=== PATIENT | male | born 1960 | race Caucasian/White ===

== ENCOUNTER 2022-11-21 06:44 | Observation (INO) | payer BC ==
[2022-11-19 13:52] LABS: BASOPHILS # (AUTO) 0.1 (0.0-0.1); BASOPHILS % 0.6 % (0.0-1.0); EOSINOPHILS # (AUTO) 0.1 (0.0-0.4); EOSINOPHILS % 0.9 % (0.0-6.0); HEMATOCRIT 46.2 % (38.2-49.6); HEMOGLOBIN 15.7 g/dL (14.0-18.0); LYMPHOCYTES # (AUTO) 0.6 (1.0-3.2); LYMPHOCYTES % 6.2 % (18.0-39.1); MEAN CORPUSCULAR HEMOGLOBIN 29.6 pg (28-32); MONOCYTES # (AUTO) 0.8 (0.2-0.8); MONOCYTES % 8.5 % (4.4-11.3); NEUTROPHILS # (AUTO) 7.8 (2.1-6.9); NEUTROPHILS % 82.7 % (38.7-80.0); PLATELET COUNT 273 x10e3/uL (140-360); RED BLOOD COUNT 5.31 x10e6/uL (4.3-5.7); RED CELL DISTRIBUTION WIDTH 13.6 % (11.7-14.4)
[2022-11-19 14:01] LABS: INR 0.95; PROTHROMBIN TIME 12.9 seconds (11.9-14.5)
[2022-11-19 14:02] LABS: PARTIAL THROMBOPLASTIN TIME 26.5 seconds (23.8-35.5)
[2022-11-19 14:09] LABS: ANION GAP 12.9 mmol/L (8-16); CREATININE, SERUM 0.89 mg/dL (0.72-1.25); POTASSIUM 3.9 mmol/L (3.5-5.1)
[~2022-11-21] VITALS: Ht 185.4 cm; Wt 86.2 kg
[~2022-11-21 06:44] MED LIST: ATORVASTATIN CA40 MG PO; LEXAPRO20 MG PO; LORATADINE10 MG PO; OMEPRAZOLE40 MG PO; TRELEGY ELLIPT1 EAC1 PO
[2022-11-21] MEDS ORDERED: CEFAZOLIN SODIUM 2 GM ONE (08:33)
[2022-11-21] MEDS ORDERED: SUGAMMADEX SODIUM 200 MG/2 ML VIAL IV ONE (09:44)
[2022-11-21] MEDS ORDERED: ACETAMINOPHEN 1000 MG/100 ML 100 ML IV ONE (09:45)
[2022-11-21] MEDS ORDERED: ZOLPIDEM TARTRATE 5 MG TAB PO PRN (10:45)
[2022-11-21] MEDS ORDERED: ACETAMINOPHEN 325 MG TAB PO PRN (10:45)
[2022-11-21] MEDS ORDERED: PROMETHAZINE HCL (IM) 25 MG/ML VIAL IM PRN (10:45)
[2022-11-21] MEDS ORDERED: MAGNESIUM/ALUMINUM/SIMETHICONE 30 ML UDC PO PRN (10:45)
[2022-11-21] MEDS ORDERED: MORPHINE SULFATE 5 MG/ML VIAL IM PRN (10:45)
[2022-11-21] MEDS ORDERED: HYDROCODON-ACE1 EA12 PO (10:46)
[2022-11-21] MEDS ORDERED: FENTANYL CITRATE/PF 100MCG/2 ML INJ ONE ×2 (11:13→12:33)
[2022-11-21] MEDS ORDERED: ONDANSETRON HCL INJ 2MG/ML 2ML 2 MG/ML VIAL ONE (12:10)
[2022-11-21] MEDS ORDERED: ROCURONIUM BROMIDE 10 MG/ML 5ML VIAL IV ONE (12:10)
[2022-11-21] MEDS ORDERED: POVIDONE IODINE 0.05% 0.05 % ML PO ONE (12:10)
[2022-11-21] MEDS ORDERED: DEXAMETHASONE SOD PHOS INJ 4 MG/ML SDV ONE (12:10)
[2022-11-21] MEDS ORDERED: ALBUTEROL SULFATE HFA 8GM INHALATION AEROSOL INH ONE (12:10)
[2022-11-21] MEDS ORDERED: KETOROLAC TROMETHAMINE 30 MG/ML VIAL ONE (12:10)
[2022-11-21] MEDS ORDERED: SEVOFLURANE INHAL SOLN 250 ML PEN BTL ONE (12:10)
[2022-11-21] MEDS ORDERED: PROPOFOL IV EMULSION 10 MG/ML 20 ML VIAL ONE (12:10)
[2022-11-21] MEDS ORDERED: LIDOCAINE HCL 2% LOCAL INJ 5 ML SDV VIAL INJ ONE (12:10)
[2022-11-21 12:21] VITALS: BP 124/77
[2022-11-21 12:25] VITALS: BP 124/77
[2022-11-21] MEDS: LACTATED RINGER'S 1,000 ML IV SCH ×2 (13:13→18:41)
[2022-11-21] MEDS: OXYCODONE/ACETAMINOPHEN 5-325 1 EACH TABLET PO PRN (14:57)
[2022-11-21] MEDS: CARISOPRODOL 350 MG TAB PO PRN (14:58)
[2022-11-21 16:43] VITALS: BP 154/88
[2022-11-21 20:00] VITALS: BP 150/91
[2022-11-21] MEDS: ONDANSETRON HCL INJ 2MG/ML 2ML 2 MG/ML VIAL IV PRN (20:00)
[2022-11-21] MEDS: HYDROMORPHONE 2MG/ML 2 MG/ML ML IV PRN (20:00)
[2022-11-21] MEDS ORDERED: ATORVASTATIN 40 MG TAB PO SCH (21:00)
[2022-11-21] MEDS ORDERED: NON-FORMULARY MEDICATION (Atorvastatin Calcium 40 MG) PO SCH (21:00)
[2022-11-22] MEDS: ONDANSETRON HCL INJ 2MG/ML 2ML 2 MG/ML VIAL IV PRN (01:26)
[2022-11-22] MEDS: HYDROMORPHONE 2MG/ML 2 MG/ML ML IV PRN (01:26)
[2022-11-22] MEDS: LACTATED RINGER'S 1,000 ML IV SCH (03:25)
[2022-11-22] MEDS ORDERED: UMECLIDINIUM INH SCH (06:00)
[2022-11-22] MEDS ORDERED: VILANTEROL INH SCH (06:00)
[2022-11-22] MEDS ORDERED: [UNRECOGNIZED DRUG - OTHER] INH SCH (06:00)
[2022-11-22] MEDS: CARISOPRODOL 350 MG TAB PO PRN (06:24)
[2022-11-22] MEDS: OXYCODONE/ACETAMINOPHEN 5-325 1 EACH TABLET PO PRN (06:24)
[2022-11-22 08:00] VITALS: BP 142/89
[2022-11-22 08:36] VITALS: BP_SYST 142; BP_SYST 150; BP_DIAS 89; BP_DIAS 91
[2022-11-22] MEDS ORDERED: ESCITALOPRAM OXALATE 10 MG TAB PO SCH (09:00)
[2022-11-22] MEDS ORDERED: LORATADINE 10 MG TAB PO SCH (09:00)
[2022-11-22] MEDS ORDERED: PANTOPRAZOLE SOD 40 MG TABEC PO SCH (09:00)
== END 2022-11-22 10:32 | disposition home or self-care (01) ==
LOC: OR 06:44 → PACU V 10:44 → MED/SURG3 11:46
PROVIDERS: ADMIT Neurological Surgery; ATTEND Neurological Surgery
DX: M50.01 Cervical disc disorder with myelopathy, high cervical region (principal); Z01.818 Encounter for other preprocedural examination; Z20.822 Contact with and (suspected) exposure to COVID-19; J44.9 Chronic obstructive pulmonary disease, unspecified; E78.5 Hyperlipidemia, unspecified
CPT/HCPCS: 0223U; 20931; 22551; 22845; 36415; 71046; 76000; 80048; 85025; 85610; 85730; 86850; 86900; 88304; 93005; C1713 ×3; G0378 ×2; J0131; J0690 ×2; J1100; J1170 ×2; J1885; J2001; J2405 ×2; J2704; J3010; J7121; S0164